=== PATIENT | female | born 1970 | race Caucasian/White ===

== ENCOUNTER 2017-09-11 19:43 | Inpatient (IN) | payer BC, SELFPAY ==
[~2017-09-11] VITALS: Ht 160 cm; Wt 50.5 kg
[2017-09-11 20:08] LABS: VENOUS BASE EXCESS -4.2 (-2.0-2.0); VENOUS O2 SATURATION 87.6 % (60.0-80.0); VENOUS PARTIAL PRESSURE CO2 33.9 mmHg (38.0-50.0); VENOUS STANDARD HCO3 20.8 MEQ/L; VENOUS TOTAL CO2 20.8 MEQ/L (24.0-28.0)
[2017-09-11 20:08] LABS: BASO % 0.4 % (0.0-1.0); EOS % 0.3 % (0.0-3.0); IMMATURE GRANULOCYTE % 0.3 % (0-0); LYMPH # 1.5 10^3/uL (1.5-4.5); LYMPH % 19.1 % (24.0-44.0); MEAN CORPUSCULAR HEMOGLOBIN 33.9 pg (27.0-33.0); MEAN CORPUSCULAR HGB CONC 35.4 g/dl (32.0-36.5); MEAN CORPUSCULAR VOLUME 95.9 fl (80.0-96.0); MONO # 0.6 10^3/uL (0.0-0.8); MONO % 7.9 % (0.0-5.0); NEUTROPHILS # 5.8 10^3/uL (1.8-7.7); PLATELET COUNT, AUTOMATED 291 10^3/uL (150-450); RED CELL DISTRIBUTION WIDTH 12.8 % (11.5-14.5)
[2017-09-11] MEDS ORDERED: ONDANSETRON 4MG/2ML VIAL (J2405) IV ONE ×2 (20:15→21:15)
[2017-09-11 21:22] LABS: OSMOLALITY SERUM 292 MOSM/KG (275-295)
[2017-09-11 21:23] LABS: CONTROL LINE HCG INT CTR LINE PRESENT
[2017-09-11 21:27] LABS: METHADONE URINE NEGATIVE (NEGATIVE)
[2017-09-11 21:43] LABS: ALBUMIN/GLOBULIN RATIO 1.38 (1.00-1.93); ALKALINE PHOSPHATASE 72 U/L (45-117); ALT/SGPT 24 U/L (12-78); ANION GAP 9 MEQ/L (8-16); AST/SGOT 15 U/L (7-37); BILIRUBIN,DIRECT 0.1 MG/DL (0.0-0.2); BILIRUBIN,TOTAL 0.6 MG/DL (0.2-1.0); BLOOD UREA NITROGEN 19 MG/DL (7-18); CALCIUM LEVEL 8.7 MG/DL (8.5-10.1); CARBON DIOXIDE LEVEL 25 MEQ/L (21-32); CHLORIDE LEVEL 106 MEQ/L (98-107); CREATININE FOR GFR 0.83 MG/DL (0.55-1.02); GLOMERULAR FILTRATION RATE > 60.0 (>58); GLUCOSE, FASTING 128 MG/DL (70-105); POTASSIUM SERUM 3.8 MEQ/L (3.5-5.1); SODIUM LEVEL 140 MEQ/L (136-145); TOTAL PROTEIN 6.9 GM/DL (6.4-8.2)
[2017-09-11] MEDS ORDERED: NS 1,000 ML IV ONE (21:45)
[2017-09-11] MEDS ORDERED: VITMTA PO (22:54)
[2017-09-11] MEDS ORDERED: D5W IV ONE (23:00)
[2017-09-11] MEDS ORDERED: ACETYLCYSTEINE IV ONE (23:00)
[2017-09-11] MEDS ORDERED: METOCLOPRAMIDE INJ 10MG/2ML VIAL (J2765) IV ONE (23:30)
[2017-09-11] MEDS ORDERED: ACETYLCYSTEINE 0 MG in D5W 1,000 ML IV ONE ×4 (23:45)
[2017-09-11] MEDS ORDERED: ONDANSETRON 4MG/2ML VIAL (J2405) IV PRN (23:45)
[2017-09-11] MEDS ORDERED: ACETYLCYSTEINE 0 MG in D5W 500 ML IV ONE ×4 (23:45)
[2017-09-12] VITALS (21 sets, daily range): BP systolic 120–172; BP diastolic 65–92
[2017-09-12] MEDS ORDERED: D5W IV ONE ×2 (00:30→04:30)
[2017-09-12] MEDS ORDERED: ACETYLCYSTEINE IV ONE ×2 (00:30→04:30)
[2017-09-12] MEDS: NICOTINE 21MG/24HR 1 EA TRANSDERMAL TD SCH ×2 (00:44→08:57)
[2017-09-12] MEDS: NS 1,000 ML IV SCH ×3 (00:45→19:04)
[2017-09-12 01:32] LABS: INR 1.22
--- NOTE | 2017-09-12 01:43 | HPEPDOC ---
General Date of Admission Sep 11, 2017 at 22:51 Attending Physician: STUART MONZON DO Chief Complaint The patient is a 46-year-old female admitted with a reason for visit of Tylenol Overdose. History of Present Illness PCP: None Patient is a 46-year-old female with past medical history significant for hysterectomy, cholecystectomy presents to the emergency room after ingesting a bottle of Tylenol. Patient is lethargic and somewhat confused on exam. Per patient and from EMS patient ingested a whole bottle of Tylenol PM this evening. Patient states that she was fired from her job her boyfriend broke up with her at her car while work. Patient willingly ingested this medication. Unsure how many pills were actually in the bottle but potentially ingested up to 50 pills. The bottle was older and not a new bottle per EMS. On exam patient is lethargic and on arrival was mumbling. She is now a little more coherent but is very tired. Complaining of nausea and is vomiting on exam. Denies any abdominal pain. Denies any pain anywhere. Denies drinking any alcohol. Admits to smoking marijuana daily. Also smokes a pack of cigarettes a day. Has not had much to eat or drink today. Says last time she had something to eat or drink was yesterday. Patient is oriented to place and person but not time. Patient was admitted to hospital service. Home Medications Scheduled Multivitamins *[facility] STOCKED* (Thera M Plus *[facility] STOCKED*) 1 Tab Tab, 1 TAB PO DAILY, (Reported) Venlafaxine HCl (Venlafaxine HCl ER) 75 Mg Capcr, 75 MG PO QAM for DEPRESSION Scheduled PRN Trazodone HCl (Trazodone HCl) 50 Mg Tab, 50 MG PO QHSP PRN for INSOMNIA Allergies Coded Allergies: No Known Allergies (Unverified , 09/11/17) Past Medical History Medical History None Surgical History Hysterectomy Cholecystectomy Social History * Smoker: current smoker (one pack a day since 15 years old) Alcohol: occationally Drugs: marijuana (smokes a joint a day) Patient lives at home by herself. Was fired from her job today. No known allergies. Review of Symptoms Constitutional: Reports: Chills (feels cold), Denies: Fever ENT: Denies: Head Aches Pulmonary: Denies: Dyspnea, Cough Cardiovascular: Denies: Chest Pain, Palpitations Gastrointestinal: Reports: Nausea, Vomiting, Denies: Abdominal Pain Genitourinary: Denies: Dysuria, Frequency Musculoskeletal: Denies: Back Pain Neurological: Denies: Numbness Physical Examination General Exam: Positive: Mild Distress, Other (lethargic. Opens eyes spontaneously, performs tasks. Some confusion. Vomiting on exam.) Eye Exam: Positive: PERRLA, Negative: Sclera icteric, Ptosis ENT Exam: Positive: Atraumatic Neck Exam: Positive: Supple Chest Exam: Positive: Clear to auscultation, Normal air movement Heart Exam: Positive: Rate Normal, Normal S1, Normal S2 Abdomen Exam: Positive: Normal bowel sounds, Soft, Negative: Tenderness Extremity Exam: Negative: Clubbing, Cyanosis, Edema Skin Exam: Negative: Rash, Breakdown Neuro Exam: Positive: Strength at 5/5 X4 ext (upper extremity), Cranial Nerves 3-12 NL Psych Exam: Positive: Other (orientated to person and place but not time.) Vital Signs Vital Signs Date Time Temp Pulse Resp B/P (MAP) Pulse Ox O2 Delivery O2 Flow Rate FiO2 09/12/17 00:13 99 09/11/17 23:45 145/84 (104) 09/11/17 23:43 81 09/11/17 20:29 98.0 18 Laboratory Data Labs 24H Laboratory Tests 2 09/11/17 19:57: Immature Granulocyte % (Auto) 0.3H, White Blood Count 8.0, Red Blood Count 4.63 , Hemoglobin 15.7, Hematocrit 44.4, Mean Corpuscular Volume 95.9, Mean Corpuscular Hemoglobin 33.9H, Mean Corpuscular Hemoglobin Concent 35.4, Red Cell Distribution Width 12.8, Platelet Count 291, Neutrophils (%) (Auto) 72.0H, Lymphocytes (%) (Auto) 19.1L, Monocytes (%) (Auto) 7.9H, Eosinophils (%) (Auto) 0.3, Basophils (%) (Auto) 0.4, Neutrophils # (Auto) 5.8, Lymphocytes # (Auto) 1.5, Monocytes # (Auto) 0.6, Eosinophils # (Auto) 0.0, Basophils # (Auto) 0.0, Immature Granulocyte # (Auto) 0.0, Nucleated Red Blood Cells % (auto) 0.0 09/11/17 20:03: Blood Gas Bicarbonate Standard 20.8, Venous Blood pH 7.384, Venous Blood Partial Pressure CO2 33.9L, Venous Blood Partial Pressure O2 50.0, Venous Blood Total Carbon Dioxide 20.8L, Venous Blood HCO3 19.8L, Venous Blood Oxygen Saturation 87.6H, Venous Blood Base Excess -4.2L 09/11/17 20:42: Anion Gap 9, Glomerular Filtration Rate > 60.0, Osmolality 292, Lactic Acid Level 2.7*H, Calcium Level 8.7, Aspartate Amino Transf (AST/SGOT) 15, Alanine Aminotransferase (ALT/SGPT) 24, Alkaline Phosphatase 72, Total Bilirubin 0.6, Direct Bilirubin 0.1, Total Creatine Kinase 44, Total Protein 6.9, Albumin 4.0, Albumin/Globulin Ratio 1.38, Thyroid Stimulating Hormone (TSH) 3.480, Human Chorionic Gonadotropin, Qual NEGATIVE, Salicylates Level 3.9L, Urine Amphetamines Screen NEGATIVE, Urine Benzodiazepines Screen NEGATIVE, Urine Opiates Screen NEGATIVE, Urine Methadone Screen NEGATIVE, Acetaminophen Level 256.5H, Urine Barbiturates Screen NEGATIVE, Urine Phencyclidine Screen NEGATIVE , Urine Cocaine Metabolite Screen NEGATIVE, Urine Cannabinoids Screen POSITIVEH , Ethyl Alcohol Level < 0.003 09/12/17 00:57: 09/12/17 01:07: CBC/BMP Laboratory Tests 09/11/17 19:57 Red Blood Count 4.63, Mean Corpuscular Volume 95.9, Mean Corpuscular Hemoglobin 33.9 H, Mean Corpuscular Hemoglobin Concent 35.4, Red Cell Distribution Width 12.8, Neutrophils (%) (Auto) 72.0 H, Lymphocytes (%) (Auto) 19.1 L, Monocytes (% ) (Auto) 7.9 H, Eosinophils (%) (Auto) 0.3, Basophils (%) (Auto) 0.4, Neutrophils # (Auto) 5.8, Lymphocytes # (Auto) 1.5, Monocytes # (Auto) 0.6, Eosinophils # (Auto) 0.0, Basophils # (Auto) 0.0 09/11/17 20:42 Assessment/Plan 1. Tylenol overdose Patient was started on N-acetylcysteine in the ER. Given loading dose over one hour. Discussed with pharmacy. Will give next dose of N-acetylcysteine 50 mg/kg over 4 hours, followed by 100 mg/kg dose over 16 hours. If patient's acetaminophen level remains elevated after this, can repeat last dose of N-acetylcysteine. Monitor patient for any reaction to N-acetylcysteine. Monitor vitals. Repeating CMP and acetaminophen level every 4 hours. Ordering PT/INR. Patient's liver function within normal limits on arrival to ER. Ordering Zofran q8hp for nausea. Patient received a dose in the ER. 2. Intentional overdose Patient intentionally overdose on Tylenol PM. Monitoring patient with suicide precautions, elopement precautions and aspiration precautions. She will remain NPO for now, starting maintenance fluids 100 ml/hr. Monitor patient. Kieran coma scale of 14 on admission. Since patient took Tylenol PM, monitor for Benadryl overdose and signs of anticholinergic activity. If agitation occurs may give one time dose of Ativan. 3. Lactic acidosis Likely secondary to Tylenol ingestion. Bolus 1000 mg NS started in ER. Reflux lactic acid ordered for 4 hours later. Monitor for now. 4. Cannabinoid use Patient smokes 1 joint a day. 5. Nicotine addiction, cigarettes Starting patient on nicotine patch, 21 mg daily. Plan / VTE VTE Prophylaxis Ordered?: Yes Plan Plan Patient admitted to the ICU. Treat patient medically until optimized to be discharged to [facility]. On suicide and elopement precautions. GME ATTESTATION GME ATTESTATION My preceptor for this patient encounter was physically present in the building during the encounter and was fully available. As needed, all aspects of the patient interview, examination, medical decision making process, and medical care plan development were reviewed and approved by the preceptor. Preceptor is aware and concurs with the plan as stated in the body of this note and will attest to such by his/her cosignature. ATTENDING NOTE Attending Note: I have independently examined this patient and all aspects of the exam and treatment decisions have been discussed with the resident. A member of the hospitalist staff will continue to follow this patient through discharge. ILSA PETTY DO Sep 12, 2017 01:22 STUART MONZON DO Sep 18, 2017 15:27
[2017-09-12 01:46] LABS: ALBUMIN 3.8 GM/DL (3.2-5.2); ALBUMIN/GLOBULIN RATIO 1.12 (1.00-1.93); ALKALINE PHOSPHATASE 70 U/L (45-117); ALT/SGPT 34 U/L (12-78); ANION GAP 9 MEQ/L (8-16); AST/SGOT 17 U/L (7-37); BILIRUBIN,TOTAL 0.6 MG/DL (0.2-1.0); BLOOD UREA NITROGEN 17 MG/DL (7-18); CALCIUM LEVEL 8.3 MG/DL (8.5-10.1); CARBON DIOXIDE LEVEL 27 MEQ/L (21-32); CHLORIDE LEVEL 104 MEQ/L (98-107); CREATININE FOR GFR 0.72 MG/DL (0.55-1.02); GLOMERULAR FILTRATION RATE > 60.0 (>58); GLUCOSE, FASTING 158 MG/DL (70-105); POTASSIUM SERUM 4.2 MEQ/L (3.5-5.1); SODIUM LEVEL 140 MEQ/L (136-145); TOTAL PROTEIN 7.2 GM/DL (6.4-8.2)
[2017-09-12 05:46] LABS: MEAN CORPUSCULAR HEMOGLOBIN 33.1 pg (27.0-33.0); MEAN CORPUSCULAR HGB CONC 35.1 g/dl (32.0-36.5); MEAN CORPUSCULAR VOLUME 94.2 fl (80.0-96.0); PLATELET COUNT, AUTOMATED 264 10^3/uL (150-450); RED CELL DISTRIBUTION WIDTH 12.4 % (11.5-14.5); WHITE BLOOD COUNT 6.9 10^3/uL (4.0-10.0)
[2017-09-12 06:05] LABS: ALBUMIN 3.5 GM/DL (3.2-5.2); ALBUMIN/GLOBULIN RATIO 1.09 (1.00-1.93); ALKALINE PHOSPHATASE 60 U/L (45-117); ALT/SGPT 25 U/L (12-78); ANION GAP 11 MEQ/L (8-16); AST/SGOT 17 U/L (7-37); BILIRUBIN,TOTAL 0.6 MG/DL (0.2-1.0); BLOOD UREA NITROGEN 14 MG/DL (7-18); CARBON DIOXIDE LEVEL 22 MEQ/L (21-32); CHLORIDE LEVEL 105 MEQ/L (98-107); CREATININE FOR GFR 0.58 MG/DL (0.55-1.02); GLOMERULAR FILTRATION RATE > 60.0 (>58); GLUCOSE, FASTING 144 MG/DL (70-105); POTASSIUM SERUM 3.2 MEQ/L (3.5-5.1); SODIUM LEVEL 138 MEQ/L (136-145); TOTAL PROTEIN 6.7 GM/DL (6.4-8.2)
[2017-09-12 06:13] LABS: INR 1.2
--- NOTE | 2017-09-12 09:12 | ECGEPIP ---
Stationary ECG Study [facility] - ED Test Date: 2017-09-11 Pat Name: DANNY HANNA Department: Room: - Gender: F [employer] Attendant: : 1970 Requested By: LIYAH LARSON Order Number: [id number] Reading MD: Troy Tucker Measurements Intervals [place] Rate: 87 P: 81 AR: 151 QRS: 71 QRSD: 86 T: 67 QT: 382 QTc: 462 Interpretive Statements SINUS RHYTHM POSSIBLE LEFT ATRIAL ENLARGEMENT INCOMPLETE RIGHT BUNDLE BRANCH BLOCK NO PRIORS FOR COMPARISON Electronically Signed On 09-12-2017 9:12:32 EDT by Troy Tucker
[2017-09-12] MEDS ORDERED: POTASSIUM CHLORIDE 10 MEQ SR TABLET PO ONE (11:00)
[2017-09-12 12:42] LABS: ALBUMIN 3.4 GM/DL (3.2-5.2); ALBUMIN/GLOBULIN RATIO 1.26 (1.00-1.93); ALKALINE PHOSPHATASE 58 U/L (45-117); ALT/SGPT 25 U/L (12-78); ANION GAP 9 MEQ/L (8-16); AST/SGOT 16 U/L (7-37); BILIRUBIN,TOTAL 0.6 MG/DL (0.2-1.0); BLOOD UREA NITROGEN 11 MG/DL (7-18); CALCIUM LEVEL 8.1 MG/DL (8.5-10.1); CARBON DIOXIDE LEVEL 22 MEQ/L (21-32); CHLORIDE LEVEL 111 MEQ/L (98-107); GLOMERULAR FILTRATION RATE > 60.0 (>58); GLUCOSE, FASTING 101 MG/DL (70-105); POTASSIUM SERUM 3.4 MEQ/L (3.5-5.1); SODIUM LEVEL 142 MEQ/L (136-145); TOTAL PROTEIN 6.1 GM/DL (6.4-8.2)
[2017-09-12] MEDS: ENOXAPARIN 40 MG/0.4 ML SYRINGE (J1650) SC SCH (14:09)
[2017-09-12 22:14] LABS: INR 1.25
[2017-09-12 22:29] LABS: ALBUMIN/GLOBULIN RATIO 1.25 (1.00-1.93); BILIRUBIN,DIRECT 0.1 MG/DL (0.0-0.2); BILIRUBIN,TOTAL 0.4 MG/DL (0.2-1.0); TOTAL PROTEIN 5.4 GM/DL (6.4-8.2)
[2017-09-13] VITALS (8 sets, daily range): BP systolic 113–150; BP diastolic 57–75
[2017-09-13 04:47] LABS: MEAN CORPUSCULAR HEMOGLOBIN 32.8 pg (27.0-33.0); MEAN CORPUSCULAR HGB CONC 34.1 g/dl (32.0-36.5); PLATELET COUNT, AUTOMATED 195 10^3/uL (150-450); RED CELL DISTRIBUTION WIDTH 12.7 % (11.5-14.5); WHITE BLOOD COUNT 5.1 10^3/uL (4.0-10.0)
[2017-09-13 05:03] LABS: INR 1.25
[2017-09-13 05:12] LABS: ALBUMIN 2.8 GM/DL (3.2-5.2); ALBUMIN/GLOBULIN RATIO 1.22 (1.00-1.93); ALKALINE PHOSPHATASE 50 U/L (45-117); ALT/SGPT 21 U/L (12-78); ANION GAP 7 MEQ/L (8-16); AST/SGOT 10 U/L (7-37); BILIRUBIN,TOTAL 0.5 MG/DL (0.2-1.0); BLOOD UREA NITROGEN 7 MG/DL (7-18); CALCIUM LEVEL 7.3 MG/DL (8.5-10.1); CARBON DIOXIDE LEVEL 23 MEQ/L (21-32); CHLORIDE LEVEL 114 MEQ/L (98-107); CREATININE FOR GFR 0.48 MG/DL (0.55-1.02); GLOMERULAR FILTRATION RATE > 60.0 (>58); GLUCOSE, FASTING 125 MG/DL (70-105); POTASSIUM SERUM 3.4 MEQ/L (3.5-5.1); SODIUM LEVEL 144 MEQ/L (136-145); TOTAL PROTEIN 5.1 GM/DL (6.4-8.2)
[2017-09-13] MEDS: NS 1,000 ML IV SCH (05:37)
[2017-09-13] MEDS ORDERED: POTASSIUM CHLORIDE 10 MEQ SR TABLET PO ONE (06:30)
[2017-09-13 06:54] LABS: MAGNESIUM LEVEL 1.7 MG/DL (1.8-2.4)
[2017-09-13] MEDS: NICOTINE 21MG/24HR 1 EA TRANSDERMAL TD SCH (08:48)
[2017-09-13] MEDS: ENOXAPARIN 40 MG/0.4 ML SYRINGE (J1650) SC SCH (08:49)
--- NOTE | 2017-09-13 09:40 | IPN ---
DATE: 09/12/2017 Ms. Cuello seems somewhat sad this morning. No complaints of pain, chest pain, shortness of breath. She would like her diet advanced. Temperature 99, pulse 65, respiratory rate 18, blood pressure 129/76, 96% on room air. Ins and outs notable for a positive fluid balance of 391. Body mass index 19.5. She is awake, but seems somewhat sad. Mucous membranes moist. Neck supple. Breathing is symmetrical. Heart is distant sounding Normal S1, S2. Abdomen soft, doughy, nontender. White cell count 6.9, hemoglobin 14.3 and platelets 264. BUN 11, creatinine 0.6, potassium 3.2 which repeats to 3.4. ASSESSMENT: 46-year-old with an intentional Tylenol overdose. PLAN: 1. Tylenol overdose. The patient was started on N-acetylcysteine, continuing with that, and is being followed by Poison Control. 2. Patient with intentional overdose. Will need to be seen by psychiatry for expected [facility] admission. 3. Patient had elevated lactic acid which resolved with N-acetylcysteine and IV hydration. 4. Patient uses nicotine and is on a nicotine patch. 5. Deep vein thrombosis (DVT) prophylaxis. Lovenox.
--- NOTE | 2017-09-13 17:10 | DSES ---
DATE OF ADMISSION: 09/11/2017 DATE OF DISCHARGE: 09/13/2017 DISCHARGE DIAGNOSIS: Acetaminophen toxicity. SECONDARY DIAGNOSES: 1. Major depressive disorder. 2. Suicide attempt. 3. Tobacco abuse. HOSPITAL COURSE: The patient is a 46-year-old female who admitted to being depressed after losing her job. She has a family history of an uncle who committed suicide and a mother who had numerous inpatient mental health hospitalizations for depression. She reports that after losing her job she was very frustrated, felt as though she had no reason to live, and kept taking handfuls of Tylenol and she does not remember the exact number. She did initially present to the emergency room with a Tylenol level of 256. She did receive an acetylcysteine anecdote and her most recent Tylenol this morning was 6.7. Her liver function tests were never grossly abnormal and neither was her international normalized ratio (INR). She remained hemodynamically stable and was monitored in the medical intensive care unit. Poison Control was contacted and they did sign off on her case. SUBJECTIVE: This morning, the patient tells me that she is feeling well. She tells me that she is no longer suicidal and she has a reason to live. She denies chest pain, fevers, chills, shortness of breath, nausea, vomiting, or diarrhea. OBJECTIVE: VITAL SIGNS: Temperature 98.9, pulse 64, respiratory rate 16, blood pressure 113/66, oxygen saturation 100% on room air. GENERAL: She is a disheveled, middle-aged, female who appears older than her stated age but in no acute distress. HEENT: She is wearing reading glasses. She has moist mucous membranes. No elevation of central venous pressure (CVP). NEUROLOGIC: Cranial nerves II-XII are grossly intact. CARDIOVASCULAR EXAMINATION: S1, S2, regular. RESPIRATORY EXAMINATION: Clear. ABDOMINAL EXAMINATION: Benign. EXTREMITIES: No clubbing, cyanosis, or edema. LABORATORY STUDIES: WBC 5.1, hemoglobin 11.4, platelet count 195. Chemistry panel: Sodium 144, potassium 3.4 repleted, chloride 114, bicarbonate 24, BUN 7, creatinine 0.4, magnesium 1.7 repleted, INR is 1.25, other laboratories as outlined above. ASSESSMENT AND PLAN: This is a 46-year-old female with an acetaminophen overdose, now resolved. PROBLEMS: 1. Acetaminophen overdose, resolved. She did receive acetylcysteine and was followed by Poison Control. They have signed off on her case. She is medically stable for discharge to inpatient mental health at this time. 2. Suicide attempt, major depressive episode. Dr. Friedman of psychiatry has seen the patient and feels as though the patient warrants involuntary admission to inpatient mental health which I agree with. Legal paperwork has been signed and filled out and the patient is being discharged to inpatient mental health. 3. Tobacco abuse. Cessation counseling offered. The patient was provided a nicotine patch while in the hospital. DISPOSITION: The patient is being discharged to inpatient mental health to the care of Dr. Friedman. She is to followup with psychiatry and followup with her primary care provider (PCP) within seven days. Her activity and diet are as prior to admission. She will return to the emergency room (ER) if her symptoms worsen. MEDICATIONS AT THE TIME OF DISCHARGE: Multivitamin one tablet by mouth daily. Greater than 30 minutes was spent organizing disposition.
[2017-09-18] MEDS ORDERED: VENL75CA47 PO (11:16)
[2017-09-18] MEDS ORDERED: TRAZO50TA PO (11:16)
== END 2017-09-13 17:55 | DRG 812 ==
LOC: M ED 19:43 → M ED INP 22:51 → M ICU 09-12 00:20
PROVIDERS: ADMIT Hospitalist; ATTEND Internal Medicine
DX: T39.1X2A Poisoning by 4-Aminophenol derivatives, intentional self-harm, initial encounter (principal); E87.2 Acidosis; F17.210 Nicotine dependence, cigarettes, uncomplicated; Y99.8 Other external cause status; Y92.009 Unspecified place in unspecified non-institutional (private) residence as the place of occurrence of the external cause; F12.90 Cannabis use, unspecified, uncomplicated; F32.9 Major depressive disorder, single episode, unspecified

== ENCOUNTER 2018-04-01 04:54 | Emergency (ER) | payer OTHER, SELFPAY ==
[2018-04-01 05:40] LABS: BASO % 0.4 % (0.0-1.0); EOS # 0.1 10^3/uL (0.0-0.50); EOS % 1.5 % (0.0-3.0); HEMATOCRIT 41.7 % (36.0-47.0); HEMOGLOBIN 14.3 g/dl (12.0-15.5); IMMATURE GRANULOCYTE % 0.2 % (0-3.0); LYMPH # 1.6 10^3/uL (1.5-4.5); MEAN CORPUSCULAR HGB CONC 34.3 g/dl (32.0-36.5); MEAN CORPUSCULAR VOLUME 93.3 fl (80.0-96.0); MONO # 0.7 10^3/uL (0.0-0.8); MONO % 8.8 % (0.0-5.0); NEUTROPHILS # 5.7 10^3/uL (1.8-7.7); NEUTROPHILS % 70.1 % (36.0-66.0); PLATELET COUNT, AUTOMATED 298 10^3/uL (150-450); RED BLOOD COUNT 4.47 10^6/uL (4.00-5.40); RED CELL DISTRIBUTION WIDTH 13.4 % (11.5-14.5); WHITE BLOOD COUNT 8.2 10^3/uL (4.0-10.0)
[2018-04-01 05:57] LABS: CONTROL LINE HCG INT CTR LINE PRESENT; HCG, SERUM QUALITATIVE NEGATIVE (NEGATIVE)
[2018-04-01 06:02] LABS: ALBUMIN 3.9 GM/DL (3.2-5.2); ALBUMIN/GLOBULIN RATIO 0.98 (1.00-1.93); ALKALINE PHOSPHATASE 78 U/L (45-117); ALT/SGPT 19 U/L (12-78); ANION GAP 5 MEQ/L (8-16); AST/SGOT 12 U/L (7-37); BILIRUBIN,DIRECT 0.1 MG/DL (0.0-0.2); BILIRUBIN,TOTAL 0.4 MG/DL (0.2-1.0); BLOOD UREA NITROGEN 14 MG/DL (7-18); CALCIUM LEVEL 8.7 MG/DL (8.5-10.1); CARBON DIOXIDE LEVEL 29 MEQ/L (21-32); CHLORIDE LEVEL 106 MEQ/L (98-107); CREATININE FOR GFR 0.71 MG/DL (0.55-1.30); GLOMERULAR FILTRATION RATE > 60.0 (>58); GLUCOSE, FASTING 104 MG/DL (70-100); LIPASE 122 U/L (73-393); POTASSIUM SERUM 3.6 MEQ/L (3.5-5.1); SODIUM LEVEL 140 MEQ/L (136-145); TOTAL PROTEIN 7.9 GM/DL (6.4-8.2)
[2018-04-01 06:40] LABS: KETONE, URINE AUTO RFX NEGATIVE (NEGATIVE); MUCUS, URINE RFX SMALL (NEGATIVE); RBC, URINE AUTO RFX 2 /HPF (0-3); SPECIFIC GRAVITY UR AUTO RFX 1.016 (1.002-1.035); SQUAM EPITHELIAL CELL UR AURFX 1 /HPF (0-6)
[2018-04-01] MEDS: KETOROLAC 30 MG/ML VIAL (J1885) IV ×2 (07:57)
[2018-04-01 08:04] LABS: NITRITE, URINE AUTO RFX POSITIVE (NEGATIVE)
[2018-04-01 08:05] LABS: LEUKOCYTE ESTERASE UR AUTO RFX 1+ (NEGATIVE); WBC, URINE AUTO RFX 39 /HPF (0-3)
[2018-04-01] MEDS: LIDOCAINE 1% MDV 20ML VIAL IM ×2 (09:24)
[2018-04-01] MEDS: cefTRIAXone SOD 1 GM VIAL (J0696) IM ×2 (09:24)
== END 2018-04-01 09:53 | disposition home or self-care (01) ==
LOC: M ED 04:54
DX: N39.0 Urinary tract infection, site not specified (principal); N28.89 Other specified disorders of kidney and ureter; F17.200 Nicotine dependence, unspecified, uncomplicated
CPT/HCPCS: J0696

== ENCOUNTER → 2018-04-06 | Outpatient (CLI) | payer OTHER ==
[~2018-04-06] MED LIST: PROHANCE 279.3MG/ML 5ML VIAL (A9576) As Ordered
== END ==
LOC: M RAD 07:20
DX: E27.9 Disorder of adrenal gland, unspecified (principal)
CPT/HCPCS: A9576

== ENCOUNTER → 2018-04-30 | Outpatient (REF) | payer OTHER ==
[2018-04-30 18:20] LABS: APPEARANCE, URINE HAZY (CLEAR); BACTERIA, URINE AUTO NEGATIVE (NEGATIVE); BILIRUBIN, URINE AUTO NEGATIVE (NEGATIVE); BLOOD, URINE BLOOD NEGATIVE (NEGATIVE); COLOR, URINE YELLOW (YELLOW); GLUCOSE, URINE (UA) AUTO NEGATIVE (NEGATIVE); KETONE, URINE AUTO NEGATIVE (NEGATIVE); LEUKOCYTE ESTERASE, URINE AUTO NEGATIVE (NEGATIVE); MUCUS, URINE SMALL (NEGATIVE); NITRITE, URINE AUTO NEGATIVE (NEGATIVE); PROTEIN, URINE AUTO NEGATIVE (NEGATIVE); RBC, URINE AUTO 2 /HPF (0-3); SPECIFIC GRAVITY URINE AUTO 1.024 (1.002-1.035); SQUAMOUS EPITHELIAL CELL UR AU 3 /HPF (0-6); WBC, URINE AUTO 1 /HPF (0-3)
== END ==
LOC: M LAB REF 16:56
DX: N39.0 Urinary tract infection, site not specified (principal)

== ENCOUNTER 2018-07-05 08:37 | Day surgery (SDC) | payer OTHER ==
[2018-07-05] MEDS: LIDOCAINE 1% SDV 5 ML VIAL SQ (06:00)
[2018-07-05] MEDS ORDERED: ONDANSETRON 4MG/2ML VIAL (J2405) As Ordered (08:53)
[2018-07-05] MEDS ORDERED: ROCURONIUM BROMIDE 50 MG/5 ML VIAL As Ordered (08:53)
[2018-07-05] MEDS ORDERED: dexameTHASONE 4 MG/ML 1ML VIAL (J1100) As Ordered (08:53)
[2018-07-05] MEDS ORDERED: LIDOCAINE 2% INJ 100 MG/5 ML SDV (FOR ANES.) As Ordered (08:53)
[2018-07-05] MEDS ORDERED: PROPOFOL 200 MG/20 ML VIAL As Ordered (08:53)
[2018-07-05] MEDS ORDERED: fentaNYL 250 MCG/5 ML INJECTION (J3010) As Ordered (08:53)
[2018-07-05] MEDS ORDERED: MIDAZOLAM INJ 2 MG/2 ML VIAL (J2250) As Ordered (08:53)
[2018-07-05] MEDS ORDERED: LIDOCAINE 2% INJ 100 MG/5 ML SYRINGE As Ordered (08:53)
[2018-07-05] MEDS: LR 1,000 ML IV ×4 (09:18→21:15)
[2018-07-05 09:36] LABS: HEMATOCRIT 41.8 % (36.0-47.0); HEMOGLOBIN 14.5 g/dl (12.0-15.5); MEAN CORPUSCULAR HGB CONC 34.7 g/dl (32.0-36.5); PLATELET COUNT, AUTOMATED 308 10^3/uL (150-450); RED CELL DISTRIBUTION WIDTH 13.8 % (11.5-14.5); WHITE BLOOD COUNT 6.1 10^3/uL (4.0-10.0)
[2018-07-05] MEDS ORDERED: SCOPOLAMINE 1MG TRANSDERMAL PATCH As Ordered (10:32)
[2018-07-05] MEDS: SCOPOLAMINE 1MG TRANSDERMAL PATCH TOP (11:00)
[2018-07-05] MEDS ORDERED: NEOSTIGMINE 10 MG/10 ML VIAL (J2710) As Ordered (11:30)
[2018-07-05] MEDS ORDERED: HYDROmorphone HCL 2 MG/ML 1ML VIAL (J1170) As Ordered (11:30)
[2018-07-05] MEDS ORDERED: KETOROLAC 60 MG/2 ML VIAL (J1885) As Ordered (11:30)
[2018-07-05] MEDS ORDERED: GLYCOPYRROLATE INJ 0.2 MG/ML 2 ML VIAL As Ordered (11:30)
[2018-07-05] MEDS ORDERED: LABETALOL HCL 100 MG/20 ML VIAL As Ordered (11:36)
[2018-07-05] MEDS ORDERED: MORPHINE 1MG/ML IN 0.9% NACL 100ML IV BAG As Ordered (13:27)
[2018-07-05] MEDS: MORPHINE 1MG/ML IN 0.9% NACL 100ML IV BAG IV (13:30)
[2018-07-05] MEDS ORDERED: diphenhydrAMINE INJ 50MG/ML VIAL (J1200) IV (13:45)
[2018-07-05] MEDS ORDERED: PERCOCET 5MG/325MG TAB PO (13:45)
[2018-07-05] MEDS ORDERED: fentaNYL 100 MCG/2 ML INJECTION (J3010) IV (13:45)
[2018-07-05] MEDS ORDERED: ONDANSETRON 4MG/2ML VIAL (J2405) IV (13:45)
[2018-07-05] MEDS ORDERED: NALBUPHINE HCL 10 MG/ML AMP (J2300) IV (13:45)
[2018-07-05] MEDS ORDERED: EPIDURAL/PCA KEYS XX (13:45)
[2018-07-05] MEDS ORDERED: NALOXONE INJ 0.4 MG/1 ML VIAL (J2310) IV (13:45)
[2018-07-05] MEDS ORDERED: MORPHINE 10 MG/ML 1ML VIAL (J2270) IV (13:45)
[2018-07-05 17:38] LABS: HEMATOCRIT 37.2 % (36.0-47.0)
[2018-07-05] MEDS ORDERED: IBUPROFEN 600 MG TAB PO (18:00)
[2018-07-05 19:21] LABS: BEDSIDE GLUCOSE 132 MG/DL (70-105)
[2018-07-05] MEDS: PROMETHAZINE INJ 25 MG/ML VIAL (J2550) IV (21:15)
[2018-07-06] MEDS: LR 1,000 ML IV (05:18)
[2018-07-06] MEDS ORDERED: NORCO, ANEXSIA 5/325MG TABLET (HYDROcodone/ACETAMINOPHEN) PO (06:00)
[2018-07-06 06:53] LABS: HEMATOCRIT 34.5 % (36.0-47.0); HEMOGLOBIN 12.1 g/dl (12.0-15.5); MEAN CORPUSCULAR HEMOGLOBIN 33.2 pg (27.0-33.0); MEAN CORPUSCULAR HGB CONC 35.1 g/dl (32.0-36.5); MEAN CORPUSCULAR VOLUME 94.5 fl (80.0-96.0); PLATELET COUNT, AUTOMATED 227 10^3/uL (150-450); RED BLOOD COUNT 3.65 10^6/uL (4.00-5.40); RED CELL DISTRIBUTION WIDTH 13.9 % (11.5-14.5); WHITE BLOOD COUNT 9.1 10^3/uL (4.0-10.0)
== END 2018-07-06 09:00 | disposition home or self-care (01) ==
LOC: M SDC 08:37 → M MSPAV 14:36
DX: R10.2 Pelvic and perineal pain (principal); N92.0 Excessive and frequent menstruation with regular cycle; F41.9 Anxiety disorder, unspecified; D25.2 Subserosal leiomyoma of uterus; D25.0 Submucous leiomyoma of uterus; N72 Inflammatory disease of cervix uteri; F17.210 Nicotine dependence, cigarettes, uncomplicated
CPT/HCPCS: 58571

== ENCOUNTER 2018-07-10 13:07 | Emergency (ER) | payer OTHER ==
[2018-07-10 14:04] LABS: BASO % 0.5 % (0.0-1.0); EOS # 0.1 10^3/uL (0.0-0.50); EOS % 1.1 % (0.0-3.0); HEMATOCRIT 42.1 % (36.0-47.0); HEMOGLOBIN 14.8 g/dl (12.0-15.5); IMMATURE GRANULOCYTE % 0.2 % (0-3.0); LYMPH # 1.1 10^3/uL (1.5-4.5); LYMPH % 13.6 % (24.0-44.0); MEAN CORPUSCULAR HEMOGLOBIN 33.2 pg (27.0-33.0); MEAN CORPUSCULAR HGB CONC 35.2 g/dl (32.0-36.5); MEAN CORPUSCULAR VOLUME 94.4 fl (80.0-96.0); MONO # 0.5 10^3/uL (0.0-0.8); MONO % 5.7 % (0.0-5.0); NEUTROPHILS # 6.6 10^3/uL (1.8-7.7); NEUTROPHILS % 78.9 % (36.0-66.0); PLATELET COUNT, AUTOMATED 293 10^3/uL (150-450); RED BLOOD COUNT 4.46 10^6/uL (4.00-5.40); WHITE BLOOD COUNT 8.4 10^3/uL (4.0-10.0)
[2018-07-10] MEDS: NS 1,000 ML IV (14:13)
[2018-07-10] MEDS: MORPHINE 4 MG/ML 1ML VIAL/SYRINGE (J2270) IV (14:14)
[2018-07-10] MEDS: ONDANSETRON 4MG/2ML VIAL (J2405) IV (14:14)
[2018-07-10 14:18] LABS: LACTIC ACID SEPSIS PROTOCOL 1.2 MMOL/L (0.4-2.0)
[2018-07-10 14:19] LABS: ALBUMIN 3.9 GM/DL (3.2-5.2); ALBUMIN/GLOBULIN RATIO 1.05 (1.00-1.93); ALKALINE PHOSPHATASE 188 U/L (45-117); ALT/SGPT 223 U/L (12-78); ANION GAP 10 MEQ/L (8-16); AST/SGOT 113 U/L (7-37); BILIRUBIN,TOTAL 0.7 MG/DL (0.2-1.0); BLOOD UREA NITROGEN 12 MG/DL (7-18); CALCIUM LEVEL 9.4 MG/DL (8.5-10.1); CARBON DIOXIDE LEVEL 25 MEQ/L (21-32); CHLORIDE LEVEL 107 MEQ/L (98-107); GLOMERULAR FILTRATION RATE > 60.0 (>58); GLUCOSE, FASTING 101 MG/DL (70-100); LIPASE 90 U/L (73-393); POTASSIUM SERUM 4.1 MEQ/L (3.5-5.1); SODIUM LEVEL 142 MEQ/L (136-145); TOTAL PROTEIN 7.6 GM/DL (6.4-8.2)
[2018-07-10] MEDS ORDERED: ISOVUE-370 76% 100ML VIAL (Q9967) As Ordered (14:22)
[2018-07-10 15:17] LABS: KETONE, URINE AUTO RFX 1+ mg/dL (NEGATIVE); LEUKOCYTE ESTERASE UR AUTO RFX NEGATIVE (NEGATIVE); NITRITE, URINE AUTO RFX NEGATIVE (NEGATIVE); RBC, URINE AUTO RFX 3 /HPF (0-3); SPECIFIC GRAVITY UR AUTO RFX 1.045 (1.002-1.035); SQUAM EPITHELIAL CELL UR AURFX 1 /HPF (0-6); WBC, URINE AUTO RFX 0 /HPF (0-3)
[2018-07-11 10:44] LABS: HEPATITIS B SURFACE ANTIGEN NEGATIVE (NEGATIVE)
[2018-07-11 11:10] LABS: HEPATITIS C VIRUS ABY INDEX 0.1 INDEX (<0.8)
[2018-07-11 11:13] LABS: HEPATITIS A ANTIBODY IGM NEGATIVE (NEGATIVE)
[2018-07-11 11:39] LABS: HEPATITIS B CORE ANTIBODY IGM NEGATIVE (NEGATIVE)
== END 2018-07-10 15:51 | disposition home or self-care (01) ==
LOC: M ED 13:07
DX: K57.32 Diverticulitis of large intestine without perforation or abscess without bleeding (principal); B37.0 Candidal stomatitis; F17.210 Nicotine dependence, cigarettes, uncomplicated
CPT/HCPCS: J2270